=== PATIENT | female | born 1960 | race Caucasian/White ===

== ENCOUNTER → 2023-11-29 10:29 | Outpatient (REF) | payer OTHER, SELFPAY | LOC: RAD 10:29 | PROVIDERS: ATTENDING PHYSICIAN Chiropractor Rehabilitation; FAMILY PHYSICIAN Family Medicine | DX: S13.8XXA Sprain of joints and ligaments of other parts of neck, initial encounter (principal); S23.8XXA Sprain of other specified parts of thorax, initial encounter; S33.5XXA Sprain of ligaments of lumbar spine, initial encounter | CPT/HCPCS: 72050; 72072; 72110 ==

== ENCOUNTER 2023-12-03 19:02 | Emergency (ER) | payer OTHER, SELFPAY ==
[2023-12-03 19:09] VITALS: BP 136/97
--- NOTE | 2023-12-03 20:50 | ED.GENMED ---
History of Present Illness
General
Chief Complaint: Back Pain
Time Seen by Provider: 12/03/23 20:50
History of Present Illness
History of Present Illness:
HPI: The patient fell while working at [employer] approximately 4 weeks ago. She saw orthopedics for her left knee and saw a chiropractor who ordered spine MRI which was performed in [place] 2 days ago but she does not have the results. She has
ongoing headache and generalized jittery feeling. She overall does not feel well. She is also very concerned because her blood pressure here was 136/97 which is very high for her.
EXAM:
GENERAL: Well appearing in mild distress
HEENT: Moist oral mucosa
CARDIOVASCULAR: No murmurs, normal heart rate, regular rhythm, minimal anterior chest wall tenderness
PULMONARY: No respiratory distress, breath sounds are clear and equal
ABDOMEN: Soft with no peritoneal signs, no tenderness
NEUROLOGIC: Excellent strength all extremities, no coordination deficits
PSYCHIATRIC: Appropriate mental status, normal insight and judgement but appears rather anxious and somewhat tremulous
EXTREMITIES: Nontender, no edema, moves all extremities equally
SKIN: No rash, no lesions
TIME OF INITIAL ENCOUNTER: 8:50 PM
NUMBER AND COMPLEXITY OF PROBLEMS ADDRESSED AT THE ENCOUNTER
� Chronic conditions affecting care: No significant past medical history
� Acute Exacerbation and/or Progression of Chronic Illness: This is an acute problem
� Differential Diagnosis includes: Trapezius strain, concussion, minor head injury, anxiety
AMOUNT AND/OR COMPLEXITY OF DATA TO BE REVIEWED AND ANALYZED
� I performed an independent evaluation of and my interpretation is:
EKG:
CT: I personally viewed CT imaging of the brain and see no acute abnormalities
X-rays:
Laboratory Studies:
Other:
� Review of other/old records: The patient was seen here 6 years ago with an AC sprain
� Clinical information was obtained by an independent historian: Spoke to at bedside
� Prescriptions/Medications Considered but not given:
� Further testing considered but not performed: Considered spine imaging however the patient did have MRI of the spine from 2 days ago (reports not available).
RISK OF COMPLICATIONS AND/OR MORBIDITY OR MORTALITY OF PATIENT MANAGEMENT
� Social determinants of health affecting care: Lives at home
� Discussion with other providers:
� Escalation of care including admission/observation vs risk of discharge considered: CT imaging was obtained as she also has rather significant head pain and is uncertain if she struck her head. She has been taking Motrin
without relief. Will add a short course of cyclobenzaprine. I informed her of the risks of sedation with cyclobenzaprine.
Past History
Past History
ED Past Medical History: None
ED Past Surgical History: Other
Social History
Tobacco: Non-smoker
Phy Exam
Physical Exam
Physical Exam:
See HPI
Course
Orders/Labs/Results
Orders:
Orders
12/03/23 20:57
Electrocardiogram (*1) Urgent
Reason for Study: Chest Pain
CT Head W/o Iv Contrast Urgent
Comment:
Reason For Exam: worsening [place] after fall
EKG- Treatment ONCE
12/03/23 22:04
Cyclobenzaprine HCl [Flexeril] 10 mg PO NOW STA
Vital Signs
Initial and Last Documented VS:
Initial Vital Signs
Temp Pulse Resp BP Pulse Ox
98.2 F 90 18 136/97 99
12/03/23 19:12/03/23 19:12/03/23 19:12/03/23 19:12/03/23 19:09
Last Documented Vital Signs
Temp Pulse Resp BP Pulse Ox
98.2 F 90 18 136/97 99
12/03/23 19:09 12/03/23 19:12/03/23 19:12/03/23 19:12/03/23 19:09
*Critical Care Note
Total Time (30-74mins, 75-104mins- exclusive of procedures): Not Applicable
ED Attending Note
-
Portions of this chart may have been created with voice recognition software.� Occasional wrong word or��sound alike� substitutions may have occurred due to the inherent limitations of voice recognition software.
Discharge Plan
Departure
Patient Disposition: Home (Routine Discharge)
Date of Disposition: 12/03/23
Time of Disposition: 22:26
Patient with high blood pressure during this ER visit?: Yes
Discharge Problem:
Acute upper back pain
Instructions: Upper Back Pain (DC), Headache, Adult ED, BLOOD PRESSURE
Prescriptions:
New
cyclobenzaprine 10 mg tablet
10 mg PO TID PRN (Reason: pain) Qty: 20 0RF
Referrals:
Edith Baird CRNP [Family Provider] -
Activity Restrictions/Additional Instructions:
The CAT scan was read by a radiologist 'no acute intracranial process, no intracranial bleed, no calvarial fracture'. I recommend that you follow-up with your primary care doctor. I did send a prescription for Flexeril to your pharmacy. Return
here if worse.
Interventions
Interventions:
*Risk Screen - Suicide Last Done: 12/03/23 22:25
*General Assessment Last Done: 12/03/23 22:25
*Neglect/Abuse Screening Last Done: 12/03/23 22:25
ED- Fall Risk Assessment Last Done: 12/03/23 20:54
*ED COVID-19 Vaccine History Last Done: 12/03/23 19:09
ED-Musculoskeletal Assessment Last Done: 12/03/23 20:51
Discharge Date and Time
Print Language: TELUGU
[2023-12-03] MEDS: FLEXERIL 10 MG PO (22:09)
== END 2023-12-03 22:47 | disposition home or self-care (01) ==
LOC: EMR 19:02
PROVIDERS: EMERGENCY PHYSICIAN Emergency Medicine; FAMILY PHYSICIAN Nurse Practitioner Adult Health
DX: M54.6 Pain in thoracic spine (principal)
CPT/HCPCS: 99284; 70450; 93005

== ENCOUNTER 2024-06-11 00:59 | Inpatient (IN) | payer BC, SELFPAY ==
[2024-06-10 21:07] VITALS: BP 73/52
--- NOTE | 2024-06-10 21:50 | ED.GENMED ---
History of Present Illness
General
Chief Complaint: Breathing Problem
Source: patient and family
Exam Limitations: none
Time Seen by Provider: 06/10/24 21:38
History of Present Illness
History of Present Illness:
64yoF with a history of breast cancer and chronic pain on chronic prednisone and opioids presenting with her daughter for evaluation of shortness of breath. Symptoms began 2 days ago with left-sided chest discomfort. She also reports cough,
shortness of breath, and a gurgling in her chest. Patient has been having subjective fevers and sweats but has not been checking her temperatures. She did have some bilateral leg swelling a few days ago which is currently improved. She is not
eating or drinking much due to her symptoms. She recently returned from a trip to [place] 4 days ago. She denies any sick contacts. Patient has not been taking any medications in the past 2 days due to her symptoms including her prednisone.
Patient follows with [facility] for her breast cancer. She underwent lumpectomy on 05/11/2024. She is scheduled to start chemotherapy next week.
Past History
Past History
ED Past Medical History: None
ED Past Surgical History: Other
Social History
Tobacco: Non-smoker
Phy Exam
General Physical Exam
General Presentation: mild distress
General Skin: warm and dry
General Habitus: normal
General Mental: alert
ENT Exam
ENT Exam: TM's normal and normocephalic
Cardiovascular Exam
Cardiovascular Exam: regular rate/rhythm, no edema and no murmur
Pulmonary Exam
Pulmonary Exam: other (Mild tachypnea noted. Able to speak in full sentences. Rales noted in R lung base.)
Neurological Exam
Neurological Exam: alert
[place] Coma Scale
Eye Opening: Spontaneous
Verbal Response: Oriented
Motor Response: Obeys Commands
GCS Total Score: 15
Skin Exam
Skin Exam: normal color, warm/dry and other (L breast incisions well healing, c/d/i )
Psychiatric Exam
Psychiatric Exam: normal mood/affect
Scores
Heart Failure Risk
Heart Failure Risk Score: Not Applicable
Course
Orders/Labs/Results
Orders:
Orders
06/10/24 21:13
Electrocardiogram (*1) Urgent
Reason for Study: Other
Other Reason for Exam: Respiratory Distress
EKG- Treatment ONCE
IV Insert/Care/Rem.- Treatment PRN
06/10/24 21:33
Complete Blood Count/With Diff Urgent
Comprehensive Metabolic Panel Urgent
NT-proBNP Urgent
Troponin I Urgent
06/10/24 21:49
CT Chest PE Study Urgent
Comment:
Reason For Exam: Chest pain, cough, hx of breast cancer
0.9% Sodium Chloride 1000 ml [Nss] 1,000 ml IV BOLUS
06/10/24 21:53
COVID-19 Antigen Urgent
Source: Nasal Swab
Lactate Level [Lactic Acid] Urgent
Blood Culture Q30M
SACHIN Source: Blood/Venous
Specimen Description:
Blood Culture Q30M
SACHIN Source: Blood/Venous
Specimen Description:
Influenza A+B Rapid Molecular Urgent
SACHIN Source: Nasal Swab
Specimen Description:
06/10/24 23:17
LevoFLOXacin 750 MG/150 ML [Levaquin] 750 mg in 150 ml IV NOW
Oseltamivir Phosphate [Tamiflu] 75 mg PO NOW STA
06/10/24 23:29
CefTRIAXone [Rocephin] 2,000 mg IV NOW STA
Doxycycline [Vibramycin] 100 mg PO NOW STA
06/10/24 23:39
Sterile Water [Sterile Water For Injection] 20 ml .ROUTE .STK-MED
06/11/24 00:34
Admit/Transfer Patient As Directed
Co-Sign Provider:
Level of Care: Inpatient admission
Assign to:: Telemetry
Physician / Group: hospitalist
Diagnosis: pneumonia, sepsis
Reason for Telemetry: Other
Other Reason for Telemetry: sepsis
Date to Stop Telemetry: 06/13/24
Time to Stop Telemetry: 11:00
Reason for Hospitalization: pneumonia
Expected length of stay greater than two midnights?: Yes
ELOS- Estimated Length of Stay in days: 2
I certify the patient meets the requirements for IP care: Yes
06/11/24 00:35
Code Status As Directed
Resuscitation Status: Full Code
06/11/24 02:19
0.9% Sodium Chloride 1000 ml [Nss] 1,000 ml IV 75 mls/hr
Acetaminophen [Tylenol] 650 mg PO Q4HPRN PRN
Ipratropium/Albuterol Sulfate [Duoneb] 3 ml INH R Q4HPRN PRN
Magnesium Hydroxide [Milk of Magnesia] 30 ml PO Q4HPRN PRN
06/11/24 02:19
Consult Notification Routine
Specialty to Notify: Infectious Disease
INFECTIOUS DISEASE CONSULT Routine
Consulting Provider: Evette Long
Was physician already notified: No
Reason for consult: influenza with focal consolidation
MRSA Screen Routine
SACHIN Source: Nose
Specimen Description:
Activity As Directed
Activity Level: Out of Bed-Early Mobility
Intake/ Output As Directed
Frequency: Per unit guidelines
Vital Signs As Directed
Frequency: Per unit guidelines
Weight As Directed
Frequency: Once
Comment: on admission
Pulse Ox/cont/shift [RESP] Routine
Quantity: 1
Special Instructions: notify provider if SPO2 < 91%
DX Deep Vein Thrombosis Video Routine
06/11/24 Breakfast
Regular
At Your Request: Full Participation
Does patient need a safe tray?: No
Basic Metabolic Panel IN AM
Complete Blood Count/No Diff IN AM
Prednisone [Deltasone] 10 mg PO Q6H
06/11/24 18:00
Enoxaparin Sodium [Lovenox] 40 mg SC QPM
06/11/24 22:00
LevoFLOXacin 750 MG/150 ML [Levaquin] 750 mg in 150 ml IV Q24H
06/13/24 11:00
DC Protocol for Telemetry ONCE
Abnormal Lab Results
06/10/24
21:33
RBC 3.76 L 10^6/uL
(4.20-5.40)
Hct 36.1 L %
(37.0-47.0)
MCH 31.9 H pg
(27.0-31.0)
Abs Immat Gran (auto) 0.1 H 10^3/uL
(0-0.05)
Absolute Neuts (auto) 7.1 H 10^3/uL
(1.4-6.5)
Absolute Lymphs (auto) 0.5 L 10^3/uL
(1.2-3.4)
Immature Gran % 1.6 H %
(0-0.5)
Neutrophils % 88.7 H %
(42.2-75.2)
Lymphocytes % 6.4 L %
(20.5-51.1)
BUN 19 H mg/dl
(7-17)
Glucose 125 H mg/dl
(70-99)
ALT 37 H U/L
(0-35)
Total Protein 5.8 L g/dl
(6.3-8.2)
Albumin 3.4 L g/dl
(3.5-5.0)
06/10/24 21:33
06/10/24 21:33
Vital Signs
Initial and Last Documented VS:
Initial Vital Signs
Temp Pulse Resp BP Pulse Ox
97.4 F 91 28 73/52 96
06/10/24 21:07 06/10/24 21:07 06/10/24 21:07 06/10/24 21:07 06/10/24 21:07
Last Documented Vital Signs
Temp Pulse Resp BP Pulse Ox
97.4 F 85 25 118/84 98
06/10/24 21:07 06/11/24 00:46 06/11/24 00:46 06/11/24 00:46 06/11/24 00:15
MDM/Problems Addressed
Differential Diagnosis Includes:
64yoF here with SOB, cough, and CP x 2 days. Also reports subjective fevers. Hx of breast cancer s/p lumpectomy last month. BP 73/52 in triage. Remainder of vitals stable. Patient is ill-appearing but nontoxic. SBP in the 90s during initial exam.
Mild tachypnea present although she is able to speak in full sentences. Rales noted on lung exam. Differential diagnosis includes but is not limited to: Viral illness, pneumonia, bronchitis, PE, sepsis
Initial ED plan: Check cardiac labs, lactate, blood cultures, COVID/flu swab, EKG, and CTA chest. IV fluid bolus.
*EKG
Interpreted by ED Provider?: Yes
EKG Intrepretation Date: 06/10/24
Heart Rate: 83
Rate: normal
Rhythm: sinus
[place]: normal axis
Interval: normal interval
QRS Pattern: normal QRS
Ischemia: no ischemia
*Critical Care Note
Total Time (30-74mins, 75-104mins- exclusive of procedures): Not Applicable
Update Note
Update Note:
Patient is positive for influenza A. CT is negative for pulmonary embolism although does show multifocal pneumonia primarily in the right lung. White count and lactate are normal. Patient has multiple medication allergies listed including
penicillin, azithromycin, cephalosporins, and vancomycin. I initially ordered IV Levaquin for her although she states that she is unable to take this with her prednisone and she does get a rash from this. I discussed case with the on-call ID
pharmacist. Apparently, the cephalosporin allergy was reflex added by [employer] in 2007 due to the listed penicillin allergy. Upon questioning, patient does not believe she has ever had a cephalosporin in the past. IV Rocephin and doxycycline
ordered. Dose of Tamiflu also given. She was admitted for further management.
ED Attending Note
-
Portions of this chart may have been created with voice recognition software.� Occasional wrong word or��sound alike� substitutions may have occurred due to the inherent limitations of voice recognition software.
Discharge Plan
Departure
Patient Disposition: Admit
Date of Disposition: 06/10/24
Time of Disposition: 23:41
Presentation/result/management discussed w/ accepting MD/DO: Hospitalist
Discharge Problem:
Influenza A, Multifocal pneumonia
Interventions
Interventions:
*Risk Screen - Suicide Last Done: 06/10/24 21:07
*General Assessment Last Done: 06/10/24 21:07
*Neglect/Abuse Screening Last Done: 06/10/24 21:07
ED- Fall Risk Assessment Last Done: 06/10/24 21:46
*ED COVID-19 Vaccine History Last Done: 06/10/24 21:46
ED- Cardiac Assessment Last Done: 06/10/24 21:46
ED- Pulmonary Assessment Last Done: 06/10/24 21:46
[2024-06-10 22:00] VITALS: BP 81/63
[2024-06-10 22:04] LABS: NT-proBNP 251 pg/ml; Troponin I < 0.012 ng/ml
[2024-06-10 22:08] VITALS: BP 93/64
[2024-06-10] MEDS: NSS 1000 IV (22:10)
[2024-06-10 22:12] LABS: Hematocrit 36.1 % (37.0-47.0); Mean Corp Hgb Conc. 33.2 g/dL (33.0-37.0); Mean Corpuscular Hgb 31.9 pg (27.0-31.0); Platelet Count 189 10^3/uL (130-400); Red Blood Cell Count 3.76 10^6/uL (4.20-5.40); Red Cell Dist. Width 14.5 % (11.5-14.5)
[2024-06-10 22:13] LABS: ALT (SGPT) 37 U/L (0-35); AST (SGOT) 21 U/L (14-36); Albumin 3.4 g/dl (3.5-5.0); Alkaline Phosphatase 58 U/L (38-126); Blood Urea Nitrogen 19 mg/dl (7-17); Calcium 9.1 mg/dl (8.4-10.2); Carbon Dioxide 30 mmol/L (22-30); Chloride 99 mmol/L (98-107); Glucose 125 mg/dl (70-99); Potassium 3.8 mmol/L (3.5-5.1); Sodium 135 mmol/L (135-145); Total Bilirubin 0.4 mg/dl (0.2-1.3); Total Protein 5.8 g/dl (6.3-8.2); eGFR > 60.00
[2024-06-10 22:19] LABS: % Basophils 0.4 % (0-2); % Immature Granulocytes 1.6 % (0-0.5); % Lymphocytes 6.4 % (20.5-51.1); % Monocytes 2.9 % (1.7-9.3); % Neutrophils 88.7 % (42.2-75.2); Absolute Immature Granulocytes 0.1 10^3/uL (0-0.05); Absolute Lymphocytes 0.5 10^3/uL (1.2-3.4); Absolute Monocytes 0.2 10^3/uL (0.1-0.6); Absolute Neutrophils 7.1 10^3/uL (1.4-6.5); Nucleated Red Blood Cells % 0 %
[2024-06-10 22:25] LABS: Lactic Acid 1.3 mmol/L (0.7-2.0)
[2024-06-10 22:27] LABS: COVID-19 Antigen Negative (Negative)
[2024-06-10 22:42] VITALS: BP 95/65
[2024-06-10 23:00] VITALS: BP 98/72
[2024-06-10 23:30] VITALS: BP 111/67
[2024-06-10] MEDS: TAMIFLU 75 MG PO (23:36)
[2024-06-10] MEDS: ROCEPHIN 2000 MG IV (23:40)
[2024-06-10] MEDS: VIBRAMYCIN 100 MG PO (23:40)
[2024-06-11] VITALS (23 sets, daily range): BP systolic 92–125; BP diastolic 47–84; PULSE 95; O2SAT 100; BMI 25.8
--- NOTE | 2024-06-11 00:26 | HPS.HSE ---
Family Physician
-
Family Physician:
Chief Complaint
-
Weakness, cough and shortness of breath
History of Present Illness
This is a 64-year-old female who has a history of degenerative disease of the spine and on chronic prednisone for pain control, recent diagnosis of breast cancer, triple negative, status post lumpectomy presents to the emergency department with
worsening weakness and cough as well as shortness of breath.
Patient reported that symptoms started on Tuesday with sudden weakness. She slept all day on Tuesday. Today she was so weak she was not able to get up or eat. The daughter decided to bring her to the hospital as she was coughing and sounded
congested. Unknown if she had a fever at home. She had no urinary symptoms. She denied any nausea vomiting or diarrhea. She has no abdominal pain. Patient has not taking 40 mg of prednisone for the last 3 days.
On arrival in the emergency department she was initially hypotensive to 70 systolic. After IV fluids her blood pressure is currently 98/70 with a pulse of 80, she was satting 99% on room air. She is afebrile. ECG shows normal sinus rhythm at a
rate of 83. CBC unremarkable electrolytes are within normal limits with normal BUN/creatinine. A influenza test was positive. Chest CT shows no evidence of PE, there is some multifocal pneumonia throughout the right lung.
Medical History
Past Medical History
Past Medical History: Reports Cancer (Recent diagnosis of breast cancer, status post left breast lumpectomy and lymph node dissection not currently on chemotherapy) and Psychiatric
Additional Past Medical History:
Chronic back pain secondary to a traumatic fall
Past Surgical History: Reports Other
Social History
Tobacco: Non-smoker
Alcohol: None
Drug: None
Living: With Family
Family History
Family History: Not pertinent
Allergies / Home Medications
Allergies reflects when Allergies were last updated in [employer].
Home Medications with original date entered in [employer]
Allergy/Medication List:
Allergies
Allergy/AdvReac Type Severity Reaction Status Date / Time
azithromycin [From Zithromax] Allergy Anaphylaxis Verified 06/10/24 22:10
Cephalosporins Allergy Anaphylaxis Verified 06/10/24 22:10
penicillin G Allergy Anaphylaxis Verified 06/10/24 22:10
Penicillins Allergy Anaphylaxis Verified 06/10/24 22:10
vancomycin Allergy Anaphylaxis Verified 06/10/24 22:10
Home Medications
cyclobenzaprine 10 mg tablet 10 mg PO TID PRN pain #20 tabs 12/03/23
Review of Systems
-
History Source: Patient
Constitutional: Reports Fatigue
EENT: Reports No Symptoms
Respiratory: Reports Cough and Trouble Breathing
Abdomen/GI: Reports No Symptoms
: Reports No Symptoms
Musculoskeletal: Reports No Symptoms
Skin: Reports No Symptoms
Neurological: Reports No Symptoms
Endocrine: Reports No Symptoms
Hematologic/Lymphatic: Reports No Symptoms
Psych: Reports No Symptoms
Physical Exam
Vital Signs
Vital Signs
Temp Pulse Resp BP Pulse Ox
97.4 F 83 27 98/72 99
06/10/24 21:07 06/10/24 23:15 06/10/24 23:15 06/10/24 23:00 06/10/24 23:15
Physical Exam
General: Well Developed, Well Nourished and Appears in Distress
HEENT: NormoCephalic, Anicteric and Moist mucous membranes
Respiratory: Crackles
Cardiac: S1/S2 and Regular Rhythm
Breast: Deferred by me
GI: Soft, Non Tender, Non Distended and Normal Bowel Sounds
Rectal: Deferred by Provider
Genito-urinary: Deferred by me
Musculoskeletal: No Clubbing, No Cyanosis and No Edema
Skin: Warm and Dry
Neuro: AO x 3 and Nonfocal/grossly intact
Hematologic/Lymphatic: No Lymphadenopathy
Psych: Calm
Laboratory Results
-
06/10/24 21:33
06/10/24:
Laboratory Results
Lactic Acid 1.3 mmol/L (0.7-2.0) 06/10/24 21:53
Total Bilirubin 0.4 mg/dl (0.2-1.3) 06/10/24:33
AST 21 U/L (14-36) 06/10/24:
ALT 37 U/L (0-35) H 06/10/24:33
Alkaline Phosphatase 58 U/L (38-126) 06/10/24:
Troponin I < 0.012 ng/ml 06/10/24:
Data Reviewed
-
CT Scan: Report Reviewed by me
Medical Tests (Nuc Med, Echo, EKG etc): Image Personally Visualized and interpreted
Lab Data: Labs Reviewed by me
Old Records: Reviewed
Impression/Plan
-
IMPRESSION:
Patient with recent diagnosis of breast cancer s/p lumpectomy and waiting to start chemo tuesday, chronic prednisone dependence for chronic vertebral disc disease presenting to the emergency department with 2 days of fever lethargy shortness of
breath and productive cough and found to have influenza, imaging shows multifocal pneumonia on the right lung on CT scan. There was no PE. She had an episode of transient hypotension on arrival in the ED. Currently blood pressure is stable and
oxygen saturation is 98% on room air.
PLAN:
1. PNA -patient agreed influenza and possible superimposed bacterial pneumonia, multifocal pneumonia on the right lung.
- admit to med/surg for now
- oseltamivir 75 bid
- h/o pcn. NO ceph allergies, continue ceftriaxone and doxycycline
- mrsa swab
- mod stress steroids, place her back on prednisone 10mg q6 for now
- nebs, antipyretics and antitussives
- pending initiation of chemo for triple negative breast cancer on tuesday
- DVT PPX - lovenox sq
Code status - full code
[2024-06-11] MEDS: NSS 1000 IV ×2 (03:03→16:19)
[2024-06-11] MEDS: TYLENOL 650 MG PO (03:55)
[2024-06-11] MEDS: DELTASONE 10 MG PO ×4 (06:06→23:50)
[2024-06-11 06:32] LABS: Hematocrit 29.9 % (37.0-47.0); Hemoglobin 10.3 g/dL (12.0-16.0); Mean Corp Hgb Conc. 34.4 g/dL (33.0-37.0); Mean Corpuscular Hgb 32.8 pg (27.0-31.0); Mean Corpuscular Volume 95.2 fL (81.0-99.0); Mean Platelet Volume 9.3 fL (7.4-10.4); Platelet Count 165 10^3/uL (130-400); Red Blood Cell Count 3.14 10^6/uL (4.20-5.40); Red Cell Dist. Width 14.4 % (11.5-14.5); White Blood Cell Count 6.1 10^3/uL (4.8-10.8)
[2024-06-11] MEDS: ROBITUSSIN AC 10 ML PO (06:47)
[2024-06-11 07:01] LABS: Blood Urea Nitrogen 13 mg/dl (7-17); Calcium 8.5 mg/dl (8.4-10.2); Carbon Dioxide 26 mmol/L (22-30); Chloride 102 mmol/L (98-107); Estimated Creatinine Clearance 81 ml/min; Glucose 99 mg/dl (70-99); Potassium 3.2 mmol/L (3.5-5.1); Sodium 134 mmol/L (135-145); eGFR > 60.00
[2024-06-11] MEDS: TAMIFLU 75 MG PO ×2 (07:57→20:42)
[2024-06-11] MEDS: VIBRAMYCIN 100 MG PO ×2 (07:57→20:42)
[2024-06-11] MEDS: MUCINEX 600 MG PO ×2 (07:57→20:42)
--- NOTE | 2024-06-11 10:04 | W.PN.HOSP.TC ---
Today's Communication/Plan
-
PT/OT
Replete potassium
Check magnesium
Continue antimicrobials
Assessment / Plan
Assessment / Plan
Gen-AAOx3, NAD
HEENT-NC, AT, anicteric, clear oral mm
Neck-supple
CV-reg, no M, +S1/S2
Lungs-clear B/L
Abd-soft, NT, ND
Ext-no edema
Musculoskeletal-no cyanosis, clubbing
Skin-warm and dry
Neuro-grossly non-focal
Psych-calm, cooperative
Hypotension -suspect component of hypovolemic shock on presentation due to volume depletion. Blood pressure improving with IV fluids.
Multifocal pneumonia -primarily right-sided on CT chest. Not significantly hypoxic. Continue current antibiotics.
Acute influenza A infection -continue Tamiflu. Underlying immunosuppression.
Chronic pain syndrome -on chronic prednisone, 40 mg daily.
Hypokalemia - check magnesium, will replete.
Hyponatremia -134.
Recent diagnosis of breast cancer -s/p recent lumpectomy. Yet to start chemotherapy. Gets treated at [facility].
Full code
Anticipated Discharge: Within 24 hours
Subjective/Interval History
-
Date of Service: June 11, 2024
Patient seen and examined, starting to feel better from respiratory standpoint. Still feeling weak.
Objective Data
-
Labs:
Laboratory Results
06/10/24 06/11/24
21:33 06:10
WBC 8.0 6.1
Hgb 12.0 10.3 L
Hct 36.1 L 29.9 L
Plt Count 189 165
Sodium 135 134 L
Potassium 3.8 3.2 L
Chloride 99 102
Carbon Dioxide 30 26
BUN 19 H 13
Creatinine 0.6 0.5 L
Glucose 125 H 99
Calcium 9.1 8.5
Total Bilirubin 0.4
AST 21
ALT 37 H
Alkaline Phosphatase 58
Vital Signs:
Vital Signs
Temp Pulse Resp BP Pulse Ox
98.5 F 83 18 104/66 94
06/11/24 07:00 06/11/24 08:30 06/11/24 08:30 06/11/24 07:30 06/11/24 08:30
Review of Systems
-
History Source: Patient
All other systems: Reviewed and negative
[2024-06-11] MEDS: KCL 40 MEQ PO (10:09)
[2024-06-11 10:33] LABS: Magnesium 2.2 mg/dl (1.6-2.3)
[2024-06-11 12:27] LABS: Glucose - Point of Care 137 mg/dl (70-99)
[2024-06-11] MEDS: ROBITUSSIN DM 10 ML PO (16:25)
[2024-06-11] MEDS: LOVENOX 40 MG SC (18:26)
[2024-06-11] MEDS: KCL 20 MEQ PO (20:42)
--- NOTE | 2024-06-11 22:54 | PTCARENOTE ---
Pt aaox3. Daughter at bedside. Pt was admitted to 3W. Assessment done and charted. No complains. Pt appears comfortable in bed and call fagan within reach. VSS. Will continue w/ tx plan.
[2024-06-11] MEDS: ROCEPHIN 1000 MG IV (23:50)
[2024-06-11] MEDS: STERILE WATER FOR INJECTION 10 ML IV (23:50)
[2024-06-12] MEDS: ROBITUSSIN DM 10 ML PO ×2 (00:08→10:08)
[2024-06-12] MEDS: NSS 1000 IV (04:35)
[2024-06-12] MEDS: TYLENOL 650 MG PO (04:35)
[2024-06-12] MEDS: DELTASONE 10 MG PO ×2 (05:28→11:42)
[2024-06-12 06:23] VITALS: BMI 25.8
[2024-06-12 06:34] LABS: % Lymphocytes 11.6 % (20.5-51.1); % Monocytes 4.5 % (1.7-9.3); % Neutrophils 82.9 % (42.2-75.2); Absolute Immature Granulocytes 0.1 10^3/uL (0-0.05); Absolute Lymphocytes 0.6 10^3/uL (1.2-3.4); Absolute Monocytes 0.2 10^3/uL (0.1-0.6); Absolute Neutrophils 4.1 10^3/uL (1.4-6.5); Hematocrit 28.2 % (37.0-47.0); Hemoglobin 9.5 g/dL (12.0-16.0); Mean Corp Hgb Conc. 33.7 g/dL (33.0-37.0); Mean Corpuscular Hgb 32.3 pg (27.0-31.0); Mean Corpuscular Volume 95.9 fL (81.0-99.0); Mean Platelet Volume 9.5 fL (7.4-10.4); Nucleated Red Blood Cells % 0 %; Platelet Count 177 10^3/uL (130-400); Red Blood Cell Count 2.94 10^6/uL (4.20-5.40); Red Cell Dist. Width 14.6 % (11.5-14.5); White Blood Cell Count 4.9 10^3/uL (4.8-10.8)
[2024-06-12 07:00] VITALS: BP 135/87
[2024-06-12 07:01] LABS: ALT (SGPT) 27 U/L (0-35); AST (SGOT) 18 U/L (14-36); Alkaline Phosphatase 59 U/L (38-126); Blood Urea Nitrogen 10 mg/dl (7-17); Calcium 8.3 mg/dl (8.4-10.2); Carbon Dioxide 23 mmol/L (22-30); Chloride 106 mmol/L (98-107); Estimated Creatinine Clearance 83 ml/min; Glucose 111 mg/dl (70-99); Potassium 4.1 mmol/L (3.5-5.1); Sodium 136 mmol/L (135-145); Total Bilirubin 0.2 mg/dl (0.2-1.3); Total Protein 5.3 g/dl (6.3-8.2); eGFR > 60.00
[2024-06-12 07:43] LABS: Hepatitis C Antibody Negative (Negative)
[2024-06-12 09:47] VITALS: BP 124/75; PULSE 94; O2SAT 96
[2024-06-12] MEDS: KCL 20 MEQ PO (09:50)
[2024-06-12] MEDS: VIBRAMYCIN 100 MG PO (09:50)
[2024-06-12] MEDS: TAMIFLU 75 MG PO (09:51)
[2024-06-12] MEDS: MUCINEX 600 MG PO (09:52)
--- NOTE | 2024-06-12 09:53 | PTOTSP ---
pt currently requires supervision to no assistance to complete simple ADLs, functional transfers, ambulation. no acute OT needs identified at this time, will sign off.
--- NOTE | 2024-06-12 10:58 | CM ---
Addendum entered by Dora Lee 06/12/24 11:34:
Patient for discharge home with no needs at this time.
Original Note:
Patient seen at bedside with daughter also present. Per patient daughter and her family lives with her along with another elderly relative and her . They are a family of 7. Patient indicated that they use [facility] in [place] and her PCP is
Juan Carlos. Patient has a walker and recent diagnosis of breast CA per patient nursing. Patient for appointment next week with [facility]. Patient stated that she had her daughter and did not anticipate any need for VN supports. Patient and
daughter reviewed questions about possible need for a nebulizer and a blood pressure monitor and agreed to discuss with physician, recommendations. Family to talk to patient CM will continue to follow for discharge planning needs.
Plan; home with VN vs home with no needs.
[2024-06-12 11:00] VITALS: BP 127/90
--- NOTE | 2024-06-12 11:03 | W.PN.HOSP.TC ---
Today's Communication/Plan
-
Discharge
Assessment / Plan
Assessment / Plan
Gen-AAOx3, NAD
HEENT-NC, AT, anicteric, clear oral mm
Neck-supple
CV-reg, no M, +S1/S2
Lungs-clear B/L
Abd-soft, NT, ND
Ext-no edema
Musculoskeletal-no cyanosis, clubbing
Skin-warm and dry
Neuro-grossly non-focal
Psych-calm, cooperative
Hypotension -suspect component of hypovolemic shock on presentation due to volume depletion. Blood pressure improved. Can stop further IV fluids.
Multifocal pneumonia -primarily right-sided on CT chest. Not significantly hypoxic. Continue current antibiotics.
Acute influenza A infection -continue Tamiflu. Underlying immunosuppression.
Chronic pain syndrome -on chronic prednisone, 40 mg daily.
Hypokalemia -potassium improved. Magnesium normal.
Hyponatremia - resolved.
Recent diagnosis of breast cancer -s/p recent lumpectomy. Yet to start chemotherapy. Gets treated at [facility].
Full code
Dispo -appears stable for discharge this afternoon. Updated daughter at the bedside. Follow-up with PCP, oncology.
35 minutes spent in discharge process.
Anticipated Discharge: Today
Subjective/Interval History
-
Date of Service: June 12, 2024
Patient seen and examined. Feeling better. Denies shortness of breath.
Objective Data
-
Labs:
Laboratory Results
06/12/24
05:57
WBC 4.9
Hgb 9.5 L
Hct 28.2 L
Plt Count 177
Sodium 136
Potassium 4.1 D
Chloride 106
Carbon Dioxide 23
BUN 10
Creatinine 0.4 L
Glucose 111 H
Calcium 8.3 L
Total Bilirubin 0.2
AST 18
ALT 27
Alkaline Phosphatase 59
Vital Signs:
Vital Signs
Temp Pulse Resp BP Pulse Ox
97.9 F 81 16 135/87 97
06/12/24 07:00 06/12/24 07:00 06/12/24 07:00 06/12/24 07:00 06/12/24 07:00
I&O
06/11/24 06/12/24 06/13/24
06:59 06:59 06:59
Intake Total 1740 / 1740
Balance 1740 / 1740
Review of Systems
-
History Source: Patient
All other systems: Reviewed and negative
--- NOTE | 2024-06-12 11:13 | W.DS.TRANS ---
DC Summary - [employer]
-
Discharge Instructions:
Discharge Diagnosis/Procedures Pneumonia, influenza, hypokalemia
Diet Regular
Activity As tolerated
Driving Restrictions As prior to admission
Bathing Restrictions None
Instructions:
Stand-Alone Forms:
Changes to Home Medications: No
Discharge Medications:
DC Medications w/original date entered in [employer]
cyclobenzaprine 10 mg tablet 10 mg PO TID PRN pain #20 tabs 12/03/23
cefuroxime axetil 500 mg tablet 500 mg PO BID #10 tabs 06/12/24
doxycycline hyclate 100 mg capsule 100 mg PO Q12 #10 caps 06/12/24
guaifenesin 600 mg tablet, extended release 12 hr 600 mg PO Q12 #20 tabs 06/12/24
oseltamivir 75 mg capsule 75 mg PO BID #6 caps 06/12/24
potassium chloride 20 mEq tablet,extended release(part/cryst) 20 meq PO DAILY #7 tabs 06/12/24
prednisone 10 mg tablet 10 mg PO Q6H #0 tabs 06/12/24
Home Medication Changes
Pending Results: No
--- NOTE | 2024-06-12 13:20 | PTCARENOTE ---
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
== END 2024-06-12 13:15 | disposition home or self-care (01) | DRG 193 ==
LOC: 3 WEST ACU 00:59
PROVIDERS: Emergency Medicine; Physician Assistant; ADMITTING PHYSICIAN Internal Medicine; ATTENDING PHYSICIAN Hospitalist; EMERGENCY PHYSICIAN Emergency Medicine; FAMILY PHYSICIAN Nurse Practitioner Adult Health
DX: J10.01 Influenza due to other identified influenza virus with the same other identified influenza virus pneumonia (principal); R57.1 Hypovolemic shock; E87.1 Hypo-osmolality and hyponatremia; D84.821 Immunodeficiency due to drugs; G89.4 Chronic pain syndrome; I95.9 Hypotension, unspecified; M54.9 Dorsalgia, unspecified; E86.9 Volume depletion, unspecified; E87.6 Hypokalemia; M79.89 Other specified soft tissue disorders; C50.919 Malignant neoplasm of unspecified site of unspecified female breast; Z79.52 Long term (current) use of systemic steroids; Z79.891 Long term (current) use of opiate analgesic; Z11.52 Encounter for screening for COVID-19; Z88.1 Allergy status to other antibiotic agents; Z88.0 Allergy status to penicillin; Z17.421 Hormone receptor negative with human epidermal growth factor receptor 2 negative status
CPT/HCPCS: 71275; 80048; 80053; 82962; 83605; 83735; 83880; 84484; 85025; 85027; 86803; 87040; 87070; 87502; 87811; 96361; 96374; 97165; 99285; 99406; Q9967

== ENCOUNTER 2024-11-12 19:46 | Emergency (ER) | payer BC, SELFPAY ==
[2024-11-12 19:49] VITALS: BP 129/85
[2024-11-13 00:35] VITALS: BMI 27.7
[2024-11-13 00:36] VITALS: BP 123/73
--- NOTE | 2024-11-13 01:31 | ED.GENMED ---
History of Present Illness
General
Chief Complaint: Back Pain
Source: patient
Exam Limitations: none
Time Seen by Provider: 11/13/24 01:29
Nursing documentation reviewed up to this point in time: agreed with
History of Present Illness
History of Present Illness:
This is a 64-year-old female with a past medical history of lumbar herniated disc, compression fractures, chronic back pain, who presents to the emergency department today with concerns of bilateral lower back pain for the past few weeks that has
acutely worsened the past day. Patient reports that a few months ago, she had a bad fall and since then she has had persistent pain. Patient has been taking Tylenol at home without relief. Patient reports that she cannot take NSAIDs. She follows
a spinal pain specialist and had injections performed in her back yesterday which did not help her symptoms. Patient states that the pain is worse on the right side and is concerned that something could be wrong with her kidneys. Patient denies
any abdominal pain. Patient denies any blood in her urine, dysuria, urinary frequency. She denies any fevers or chills. She denies any urinary or fecal incontinence. She denies any weakness in lower extremities, any difficulty walking. She
denies any new trauma to the back.
Past History
Past History
ED Past Medical History: None
ED Past Surgical History: Other
Social History
Tobacco: Non-smoker
Review of Systems
Review of Systems
All Other Systems: ROS reviewed and negative except as documented in HPI and ROS
Phy Exam
Physical Exam
Physical Exam:
General: Patient is well appearing and in no acute distress; non-toxic
Skin: Warm and dry, no rashes or lesions
Head: Normocephalic, atraumatic
Eyes: Sclera non-icteric. EOMs intact.
Cardiac: Regular rate and rhythm, no murmurs
Peripheral Vascular: No lower extremity swelling or edema, 2+ DP pulses bilaterally
Pulm: Normal respiratory effort
Abdomen: No abdominal tenderness to palpation
Musculoskeletal: No midline spinal tenderness, bilateral paralumbar tenderness to palpation; 5/5 strength in b/l lower extremeties
Neuro: CN II-XII intact, no focal neurologic deficits.
Psychiatric: Appropriate mood and affect.
Course
Orders/Labs/Results
Orders:
Orders
11/13/24 01:46
CT Abd/pel Without Iv Or Oral Urgent
Comment:
Reason For Exam: right low back pain
Cyclobenzaprine HCl [Flexeril] 10 mg PO NOW STA
Lidocaine [Lidocaine 4% Patch] 1 patch TOPICAL DAILY ONE
Apply Lidocaine patch(s) to:: right paralumbar
11/13/24 02:11
Complete Blood Count/With Diff Urgent
Comprehensive Metabolic Panel Urgent
Urinalysis Reflex To Culture Urgent
Date Specimen was Collected: 11/13/24
Time Specimen was Collected: 02:07
Abnormal Lab Results
11/13/24
02:11
WBC 3.1 L 10^3/uL
(4.8-10.8)
RBC 3.97 L 10^6/uL
(4.20-5.40)
Hct 36.7 L %
(37.0-47.0)
MCHC 32.7 L g/dL
(33.0-37.0)
RDW 16.2 H %
(11.5-14.5)
Absolute Lymphs (auto) 0.8 L 10^3/uL
(1.2-3.4)
Monocytes % 11.1 H %
(1.7-9.3)
Chloride 108 H mmol/L
(98-107)
Calcium 10.4 H mg/dl
(8.4-10.2)
11/13/24 02:11
11/13/24 02:11
Vital Signs
Initial and Last Documented VS:
Initial Vital Signs
Temp Pulse Resp BP Pulse Ox
98.9 F 85 18 129/85 98
11/12/24 19:49 11/12/24 19:49 11/12/24 19:49 11/12/24 19:49 11/12/24 19:49
Last Documented Vital Signs
Temp Pulse Resp BP Pulse Ox
98.9 F 77 18 119/59 100
11/13/24 05:06 11/13/24 05:06 11/13/24 00:36 11/13/24 05:06 11/13/24 05:06
MDM/Problems Addressed
Differential Diagnosis Includes:
ddx include nephrolithiasis, lumbar strain, constipation, abdominal aortic aneurysm
MDM/Problems Addressed:
This is a 64-year-old female with a past medical history of lumbar herniated disc, compression fractures, chronic back pain, who presents to the emergency department today with concerns of bilateral lower back pain for the past few weeks that has
acutely worsened the past day. I did review her x-ray done a few weeks ago which revealed multiple compression fractures. I did review her recent MRI which revealed multiple levels of herniated disc. Patient was very concerned about her kidneys.
Did perform a plain CAT scan abdomen pelvis which did not show any evidence of perinephric stranding or kidney stone. Explained the patient that this is highly likely to be her chronic back pain versus lumbar sprain. Patient symptoms did not
improve with muscle relaxant and lidocaine patch. Patient is able to ambulate. Patient stable for discharge. Advised patient to call her orthopedist tomorrow
*Critical Care Note
Total Time (30-74mins, 75-104mins- exclusive of procedures): Not Applicable
ED Attending Note
-
Portions of this chart may have been created with voice recognition software.� Occasional wrong word or��sound alike� substitutions may have occurred due to the inherent limitations of voice recognition software.
Discharge Plan
Departure
Patient Disposition: Home (Routine Discharge)
Date of Disposition: 11/13/24
Time of Disposition: 04:33
Patient with high blood pressure during this ER visit?: Yes
Condition: Good
Discharge Problem:
Lumbar sprain, Compression fracture
Instructions: Low Back Pain (DC), BLOOD PRESSURE
Prescriptions:
New
lidocaine 5 % adhesive patch,medicated
1 patch topical DAILY Qty: 15 0RF
cyclobenzaprine 10 mg tablet
10 mg PO TIDPRN PRN (Reason: muscle spasm) Qty: 10 0RF
No Action
cyclobenzaprine 10 mg tablet
10 mg PO TID PRN (Reason: pain) Qty: 20 0RF
prednisone 10 mg Tablet
10 mg PO Q6H Qty: 0 0RF
doxycycline hyclate 100 mg Capsule
100 mg PO Q12 Qty: 10 0RF
potassium chloride 20 mEq Tablet,Er Particles/Crystals
20 meq PO DAILY Qty: 7 0RF
oseltamivir 75 mg Capsule
75 mg PO BID Qty: 6 0RF
guaifenesin 600 mg Tablet Extended Release 12hr
600 mg PO Q12 Qty: 20 0RF
cefuroxime axetil 500 mg tablet
500 mg PO BID Qty: 10 0RF
Referrals:
Edith Baird CRNP [Family Provider, General]
Activity Restrictions/Additional Instructions:
Lidocaine patch has been sent to your pharmacy. You can apply 1 patch patch over the affected area once daily. Please remove after 12 hours.
Cyclobenzaprine has been sent to her pharmacy. You can take 1 tablet every 8 hours as needed. Please do not drive while taking this medication. I recommend taking it before bed.
Please call your orthopedist who performed your injections.
PLEASE RETURN THE EMERGENCY DEVELOP URINARY OR FECAL INCONTINENCE, FEVERS OR CHILLS, INABILITY AMBULATE, NUMBNESS OR TINGLING BILATERAL LOWER EXTREMITIES, CHEST PAIN OR SHORTNESS OF BREATH, OR ANY OTHER SIGNS OR SYMPTOMS WORRISOME TO YOU.
Interventions
Interventions:
*Risk Screen - Suicide Last Done: 11/12/24 19:49
*General Assessment Last Done: 11/12/24 19:49
*Neglect/Abuse Screening Last Done: 11/13/24 05:10
*ED- Fall Risk Assessment Last Done: 11/12/24 19:49
*ED COVID-19 Vaccine History Last Done: 11/12/24 19:49
*Nursing Disposition Last Done: 11/13/24 05:10
ED-Musculoskeletal Assessment Last Done: 11/13/24 00:40
Discharge Date and Time
Discharge Date/Time: 11/13/24 05:10
Print Language: PERSIAN
[2024-11-13] MEDS: FLEXERIL 10 MG PO (02:16)
[2024-11-13] MEDS: LIDOCAINE 4% PATCH 1 PATCH TOPICAL (02:17)
[2024-11-13 02:18] LABS: Urine Albumin Negative (Neg - Trace); Urine Bilirubin Negative (Negative); Urine Character Clear (Clear); Urine Color Yellow; Urine Glucose Negative (Negative); Urine Ketone Negative (Negative); Urine Leukocyte Negative (Negative); Urine Nitrite Negative (Negative); Urine Occult Blood Negative (Negative); Urine Urobilinogen Negative (Neg - 1+)
[2024-11-13 02:27] LABS: % Basophils 0.3 % (0-2); % Eosinophils 0.7 % (0-6); % Immature Granulocytes 0.3 % (0-0.5); % Lymphocytes 27.2 % (20.5-51.1); % Monocytes 11.1 % (1.7-9.3); % Neutrophils 60.4 % (42.2-75.2); Absolute Lymphocytes 0.8 10^3/uL (1.2-3.4); Absolute Monocytes 0.3 10^3/uL (0.1-0.6); Absolute Neutrophils 1.8 10^3/uL (1.4-6.5); Hematocrit 36.7 % (37.0-47.0); Mean Corp Hgb Conc. 32.7 g/dL (33.0-37.0); Mean Corpuscular Hgb 30.2 pg (27.0-31.0); Mean Corpuscular Volume 92.4 fL (81.0-99.0); Mean Platelet Volume 9.3 fL (7.4-10.4); Nucleated Red Blood Cells % 0 %; Platelet Count 211 10^3/uL (130-400); Red Blood Cell Count 3.97 10^6/uL (4.20-5.40); Red Cell Dist. Width 16.2 % (11.5-14.5); White Blood Cell Count 3.1 10^3/uL (4.8-10.8)
[2024-11-13 02:42] LABS: ALT (SGPT) 16 U/L (0-35); AST (SGOT) 21 U/L (14-36); Albumin 4.5 g/dl (3.5-5.0); Alkaline Phosphatase 116 U/L (38-126); Blood Urea Nitrogen 15 mg/dl (7-17); Calcium 10.4 mg/dl (8.4-10.2); Carbon Dioxide 28 mmol/L (22-30); Chloride 108 mmol/L (98-107); Estimated Creatinine Clearance 94 ml/min; Glucose 93 mg/dl (70-99); Potassium 4.1 mmol/L (3.5-5.1); Sodium 144 mmol/L (135-145); Total Bilirubin 0.4 mg/dl (0.2-1.3); Total Protein 7.4 g/dl (6.3-8.2); eGFR > 60.00
[2024-11-13 05:06] VITALS: BP 119/59
== END 2024-11-13 05:10 | disposition home or self-care (01) ==
LOC: EMR 19:46
PROVIDERS: Physician Assistant; EMERGENCY PHYSICIAN Emergency Medicine; FAMILY PHYSICIAN Nurse Practitioner Adult Health
DX: S33.5XXA Sprain of ligaments of lumbar spine, initial encounter (principal); W19.XXXA Unspecified fall, initial encounter; M48.56XA Collapsed vertebra, not elsewhere classified, lumbar region, initial encounter for fracture; G89.29 Other chronic pain
CPT/HCPCS: 99284; 74176; 80053; 81003; 85025